=== PATIENT | female | born 2000 | race Two or more races ===

== ENCOUNTER → 2018-08-21 13:29 | Emergency (ER) | payer OTHER ==
[~2018-08-21 13:29] MED LIST: Ketorolac INJ* 30 MG/ML 1 ML VIAL IV PUSH ONE; Morphine INJ* 2 MG/ML 1 ML SYRINGE (TWO MG - NEW SYRINGE VERSION) IV ONE; Morphine VIAL* 4 MG/ML VIAL (1 ml vial) IV ONE; Morphine VIAL* 4 MG/ML VIAL (1 ml vial) ONE; NS 0.9% 1000 ML* 2,000 ML IV ONE; Ondansetron INJ* 2 MG/ML VIAL IV ONE; Tamsulosin CAP* 0.4 MG PO ONE; oxyCODONE/Acetamin 5/325 MG* TAB PO ONE
--- NOTE | 2018-08-21 13:39 | ED ---
Abdominal Pain/Female - HPI Summary HPI Summary: Pt is a 18 y/o F presenting to the ED brought in by EMS from urgent care with a chief complaint of abd pain rapid onset this morning located on her left side. The pt reports pain in her lower back as well. The pt denies any medical problems. - History of Current Complaint Chief Complaint: EDAbdPain Stated Complaint: ABD/FLANK PAIN/VOMITING Time Seen by Provider: 08/21/18 13:31 Hx Obtained From: Patient Onset/Duration: Sudden Onset, Lasting Hours, Still Present Timing: Constant Severity Initially: Severe Severity Currently: Severe Pain Intensity: 8 Pain Scale Used: 0-10 Numeric Location: Discrete At: LUQ, Discrete At: LLQ Radiates: Yes Radiates to: Back Character: Sharp, Cramping Aggravating Factor(s): Movement, Deep Breaths Alleviating Factor(s): Nothing Associated Signs and Symptoms: Positive: Vomiting. Negative: Fever Allergies/Adverse Reactions: Allergies Allergy/AdvReac Type Severity Reaction Status Date / Time spinach Allergy Unknown Verified 08/21/18 13:32 Reaction Details Home Medications: Home Medications Levothyroxine TAB* [Synthroid TAB*] 112 mcg PO DAILY 08/21/18 [History Confirmed 08/21/18] PMH/Surg Hx/FS Hx/Imm Hx Previously Healthy: Yes Endocrine/Hematology History: Denies: Hx Diabetes Cardiovascular History: Denies: Hx Hypertension Infectious Disease History: No Infectious Disease History: Denies: Traveled Outside the [place] in Last 30 Days - Family History Known Family History: Negative: Renal Disease - Social History Occupation: Student Lives: Dormitory/Roommates Review of Systems Negative: Fever Positive: Abdominal Pain, Vomiting All Other Systems Reviewed And Are Negative: Yes Physical Exam - Summary Physical Exam Summary: Appearance: Well appearing, no pain distress Skin: warm, dry, reflects adequate perfusion Head/face: normal Eyes: EOMI, JOSE ENT: normal Neck: supple, non-tender Respiratory: CTA, breath sounds present Cardiovascular: RRR, pulses symmetrical Abdomen: tenderness in the LLQ and LUQ. Musculoskeletal: normal, strength/ROM intact Neuro: normal, sensory motor intact, A&Ox3 Triage Information Reviewed: Yes Vital Signs On Initial Exam: Initial Vitals Temp Pulse Resp BP Pulse Ox 98.3 F 63 16 100/80 100 08/21/18 13:30 08/21/18 13:30 08/21/18 13:30 08/21/18 13:30 08/21/18 13:30 Vital Signs Reviewed: Yes Diagnostics - Vital Signs Vital Signs Temp Pulse Resp BP Pulse Ox 08/21/18 13:30 98.3 F 63 16 100/80 100 - Laboratory Result Diagrams: 08/21/18 13:45 08/21/18 13:45 Lab Statement: Any lab studies that have been ordered have been reviewed, and results considered in the medical decision making process. - CT abd/pelv CT CT Interpretation Completed By: Radiologist Summary of CT Findings: Trace left hydroureter without appreciable nephrolithiasis which may reflect recently passed stone. ED physician has reviewed this report. Abdominal Pain Fem Course/Dx - Course Course Of Treatment: Pt is a 18 y/o F presenting to the ED brought in by EMS from urgent care with a chief complaint of abd pain rapid onset this morning located on her left side. The pt reports pain in her lower back as well. The pt denies any medical problems. Bloodwork/UA obtained. CT of abd shows trace left hydroureter without appreciable nephrolithiasis which may reflect recently passed stone. Final dx includes renal colic. The pt will be sent home with reference to a urologist, and instructions to return with new or worsening symptoms. The pt is agreeable with this plan. - Diagnoses Differential Diagnosis: Positive: Diverticulitis, Ovarian Cyst, Renal Colic, Urinary Tract Infection Provider Diagnoses: Renal colic Discharge - Sign-Out/Discharge Documenting (check all that apply): Patient Departure - Discharge Plan Condition: Stable Disposition: HOME Prescriptions: Oxycodone HCl/Acetaminophen [Percocet] 1 tab PO TID #15 tab MDD 3 Tamsulosin CAP* [Flomax CAP*] 0.4 mg PO DAILY #10 cap Referrals: [facility] [Outside] Severo Sandoval MD [Medical Doctor] - Additional Instructions: PLEASE FOLLOW UP WITH THE REFERRED UROLOGIST WITHIN THE NEXT THREE DAYS. RETURN TO THE EMERGENCY DEPARTMENT WITH ANY NEW OR WORSENING SYMPTOMS. - Billing Disposition and Condition Condition: STABLE Disposition: Home - Attestation Statements Document Initiated by Scribe: Yes Documenting Scribe: Mallorie Sanchez Provider For Whom Scribe is Documenting (Include Credential): Lanre Byrne MD. Scribe Attestation: Mallorie Benavides, scribed for Lanre Byrne MD. on 08/21/18 at 1656. Scribe Documentation Reviewed: Yes Provider Attestation: The documentation as recorded by the scribe, Mallorie Sanchez accurately reflects the service I personally performed and the decisions made by me, Lanre Byrne MD. Status of Scribe Document: Viewed
[2018-08-21 13:54] LABS: ABS Basophils 0 10^3/ul (0-0.2); ABS Eosinophils 0 10^3/ul (0-0.6); ABS Lymphocytes 1.6 10^3/ul (1.0-4.8); ABS Monocytes 0.4 10^3/ul (0-0.8); ABS Neutrophils 8.2 10^3/ul (1.5-7.7); ABS Nucleated RBC 0 10^3/ul; Eosinophil % 0.3 %; Hematocrit 39 % (35-47); Hemoglobin 12.6 g/dl (12.0-16.0); Lymphocyte % 15.5 %; Mean Corpuscular HGB Conc 33 g/dl (31-36); Mean Corpuscular Hemoglobin 25 pg (27-31); Mean Corpuscular Volume 75 fL (80-97); Mean Platelet Volume 8.7 fL (7.4-10.4); Nucleated Red Blood Cells % 0; Platelet Count 260 10^3/ul (150-450); Red Blood Count 5.15 10^6/ul (4.00-5.40); Red Cell Distribution Width 17 % (10.5-15); White Blood Count 10.2 10^3/ul (3.5-10.8)
[2018-08-21 14:01] LABS: Activated Partial Thrombo Time 27.9 seconds (26.0-36.3); INR 0.98 (0.77-1.02)
[2018-08-21 14:09] LABS: ALT 11 U/L (7-52); AST 23 U/L (13-39); Albumin 4.5 g/dL (3.2-5.2); Albumin/Globulin Ratio 1.5 (1-3); Alkaline Phosphatase 82 U/L (34-104); Anion Gap 11 mmol/L (2-11); Blood Urea Nitrogen 7 mg/dL (6-24); CO2 Carbon Dioxide 22 mmol/L (22-32); Chloride 105 mmol/L (101-111); EGFR Non-African American 94.2 (>60); Glucose 126 mg/dL (70-100); Potassium 3.5 mmol/L (3.5-5.0); Sodium 138 mmol/L (135-145); Total Protein 7.5 g/dL (6.4-8.9)
[2018-08-21 14:15] LABS: HCG Pregnancy < 0.60 mIU/mL
[2018-08-21 15:33] LABS: Urine Appearance Clear; Urine Color Yellow
[2018-08-21 15:34] LABS: Urine Ketones 1+ (Negative); Urine Protein Negative (Negative); Urine Specific Gravity 1.005 (1.010-1.030); Urine Urobilinogen Negative (Negative)
[2018-08-21 15:36] LABS: Urine Blood Negative (Negative)
[2018-08-21 15:37] LABS: Urine Bilirubin Negative (Negative); Urine Glucose Negative (Negative); Urine Nitrite Negative (Negative)
[2018-08-21 15:53] LABS: Urine Bacteria 1+ (Absent); Urine Red Blood Cell Trace(0-2/hpf) (Absent); Urine White Blood Cell Trace(0-5/hpf) (Absent)
[2018-08-21 17:18] VITALS: BP 130/84
== END | disposition home or self-care (01) ==
LOC: ED 13:29
DX: N23 Unspecified renal colic (principal); N13.4 Hydroureter
CPT/HCPCS: 36415; 74176; 80053; 81003; 83690; 84702; 85025; 85610; 85730; 87086; 96361; 96374; 96375; 96376; 99283; A9270-GY; J1885; J2270; J2405